=== PATIENT | female | born 1980 | race Caucasian/White ===

== ENCOUNTER 2017-01-10 05:37 | Outpatient (CLI) | payer OTHER ==
[~2017-01-10] VITALS: Ht 167.6 cm; Wt 85.7 kg
[~2017-01-10 05:37] MED LIST: OXYC-202 PO
== END 2017-01-10 12:57 ==
LOC: PREOP 05:37
PROVIDERS: ATTEND Obstetrics & Gynecology
DX: Z01.818 Encounter for other preprocedural examination (principal); O02.0 Blighted ovum and nonhydatidiform mole; D64.9 Anemia, unspecified

== ENCOUNTER 2017-01-11 12:25 | Day surgery (SDC) | payer OTHER ==
[~2017-01-11] VITALS: Ht 167.6 cm; Wt 85.7 kg
[2017-01-11 12:28] VITALS: BP 136/74
[2017-01-11] MEDS ORDERED: LACTATED RINGERS 1,000 ML IV PRN (12:38)
[2017-01-11] MEDS ORDERED: metroNIDAZOLE 500 MG/100 ML IVPB (PRE-MIX) IV ONE (12:45)
[2017-01-11 12:48] LABS: BASOPHILS % (AUTO) 1 % (0-10); EOSINOPHILS # (AUTO) 0.1 10^3/uL (0.0-0.3); EOSINOPHILS % (AUTO) 2 % (0-10); LYMPHOCYTES # (AUTO) 3.4 X 10^3 (1.0-4.0); LYMPHOCYTES % (AUTO) 39 % (12-44); MEAN CORPUSCULAR HEMOGLOBIN 33 PG (25-34); MEAN CORPUSCULAR HGB CONC 34 G/DL (32-36); MEAN CORPUSCULAR VOLUME 97 FL (80-99); MEAN PLATELET VOLUME 9.5 FL (7.4-10.4); MONOCYTES # (AUTO) 0.7 X 10^3 (0.0-1.0); MONOCYTES % (AUTO) 8 % (0-12); NEUTROPHILS # (AUTO) 4.5 X 10^3 (1.8-7.8); NEUTROPHILS % (AUTO) 52 % (42-75); PLATELET COUNT 277 10^3/uL (130-400); RED BLOOD COUNT 3.89 10^6/uL (4.35-5.85); RED CELL DISTRIBUTION WIDTH 13.1 % (10.0-14.5); WHITE BLOOD COUNT 8.7 10^3/uL (4.3-11.0)
[2017-01-11] MEDS ORDERED: DEXAMETHASONE PF 10 MG/ML (DECADRON) VIAL ONE (13:00)
[2017-01-11] MEDS ORDERED: proPOfol 200 MG/20 ML (DIPRIVAN) VIAL IV ONE (13:00)
[2017-01-11] MEDS ORDERED: MIDAZOLAM 2 MG/2 ML (VERSED) VIAL ONE (13:00)
[2017-01-11] MEDS ORDERED: fentaNYL INJECTION 100 MCG/2 ML AMP ONE (13:00)
[2017-01-11] MEDS ORDERED: LIDOCAINE PF 2% 5 ML (XYLOCAINE) VIAL ONE (13:00)
[2017-01-11] MEDS ORDERED: KETOROLAC 30 MG/ML VIAL ONE ×2 (13:00→13:31)
[2017-01-11] MEDS ORDERED: LACTATED RINGERS 1,000 ML IV ONE (13:00)
--- NOTE | 2017-01-11 13:09 | Progress Note-Pre Operative ---
Pre-Operative Progress Note H&P Reviewed The H&P was reviewed, patient examined and no changes noted. Date H&P Reviewed: January 11, 2017 Time H&P Reviewed: 13:09 Pre-Operative Diagnosis: blighted ovum/missed AB/abnormal cervical cells KEVIN LIN MD January 11, 2017 1:09 pm
[2017-01-11] MEDS ORDERED: D5 LR IV SOLUTION 1,000 ML IV SCH (13:10)
--- NOTE | 2017-01-11 13:10 | Progress Note-Post Operative ---
Post-Operative Progess Note Surgeon (s)/Microsoft Dynamics Ax Developer (s) Surgeon KEVIN LIN MD [employer] Ax Developer: none Pre-Operative Diagnosis blighted ovum/missed AB/abnormal cervical cells Post-Operative Diagnosis same with pathology pending Procedure & Operative Findings Date of Procedure 01/11/17 Procedure Performed/Findings same as postoperative diagnosis with pathology pending Anesthesia Type Gen. Estimated Blood Loss Estimated blood loss (mL): minimal Specimens/Packing Specimens Removed uterine contents and endocervical curettage Packing: none KEVIN LIN MD January 11, 2017 1:10 pm
--- NOTE | 2017-01-11 13:13 | Discharge Instructions ---
Discharge Instructions Discharge Medications New, Converted or Re-Newed RX: Other Patient Instructions Patient Instructions: as directed Return to The Hospital For: as directed Activity & Diet Discharge Diet: No Restrictions Activity as Tolerated: No Orders-Post D/C & Referrals Follow Up Appt: Call to make follow up appt. for patient in 2 weeks. Activity: when fully awake activity as tolerated. Diet: As tolerated-Clear Liquids only if nauseated. May shower or tub bathe as desired. No driving for 24 hours, no alcoholic beverages for 24 hours, and nothing per vagina (no tampons, douching, or intercourse) for 2 weeks. Patient to return to the clinic as soon as possible for: Temperature greater than 101F, Severe Pain, Foul discharge from incision or vagina, Excessive Bleeding (more than a period). May take home pain medications when necessary as prescribed KEVIN LIN MD January 11, 2017 1:13 pm
[2017-01-11] MEDS ORDERED: ONDANSETRON 4 MG/2 ML (SDV) Z0FRAN IVP PRN ×2 (13:15→14:00)
[2017-01-11] MEDS ORDERED: KETOROLAC 30 MG/ML VIAL IVP ONE (13:15)
[2017-01-11] MEDS ORDERED: MEPERIDINE (DEMEROL) INJ 100 MG/ML IM ONE (13:15)
[2017-01-11] MEDS ORDERED: oxyCODONE/APAP 10/325MG (PERCOCET 10) TABLET PO PRN (13:15)
[2017-01-11] MEDS ORDERED: morphine INJ 10 MG/ML 1ML (SYR OR VIAL) ONE (13:22)
[2017-01-11] MEDS ORDERED: SEVOFLURANE (ULTANE) 15 ML INHAL SOLN ONE (13:31)
[2017-01-11] MEDS ORDERED: morphine INJ 10 MG/ML 1ML (SYR OR VIAL) IVP PRN (14:00)
[2017-01-11] MEDS ORDERED: fentaNYL INJECTION 100 MCG/2 ML AMP IVP PRN (14:00)
[2017-01-11 14:40] VITALS: BP 123/60
[2017-01-11 15:10] VITALS: BP 110/73
[2017-01-11 15:40] VITALS: BP 118/74
[2017-01-11 15:48] VITALS: BP 118/74
--- NOTE | 2017-01-11 23:02 | OPERATIVE REPORT ---
DATE OF SERVICE: 01/11/2017 PREOPERATIVE DIAGNOSES: Missed /blighted ovum and abnormal intracervical cells. POSTOPERATIVE DIAGNOSES: Missed /blighted ovum and abnormal intracervical cells. OPERATIVE PROCEDURE: Intracervical curettage and D and C for blighted ovum. OPERATIVE DESCRIPTION: With the patient in the supine position under satisfactory general anesthesia, she was repositioned in dorsal lithotomy position in the [facility] and prepped and draped in the usual fashion for vaginal surgery. The urinary bladder was emptied with a straight catheter. A weighted speculum was placed in the posterior fornix of the vagina; the cervix was exposed and grasped anteriorly with a single-tooth tenaculum. The end of the cervix was curettaged with a Kevorkian and curette and then a Pap smear brush was used to retrieve additional cells and tissues released with the ECC. That was put in formalin and sent to pathology labeled as endocervical curettage. The cervix was now serially dilated with Toni dilators to a #20 Toni and then a #9 Hegar dilator was the final step in dilation. The #9 curve sucking curette was then introduced, and the uterine cavity curettaged in all 4 quadrants with removal of a moderate amount of trophoblastic and decidual appearing tissue, blood, clot, amniotic fluid and debris. The endometrial cavity was then sharply curettaged in all 4 quadrants to good uterine cri. The suction curette was reintroduced. All blood, clot and debris evacuated from the uterus. The procedure at this point was complete. The curettes were removed as was the tenaculum from the cervix. There was some bleeding from one of the puncture sites. This was touched with silver nitrate to effect hemostasis. The sponge and needle count was correct, hemostasis assured. No bleeding of any note from the cervical os or from the puncture sites. The procedure was complete and terminated. The patient was uneventfully awakened from general anesthesia and transferred to recovery room in stable condition with plans to discharge home PAR. Job ID: [id number] DocumentID: [id number] Dictated Date: 01/11/2017 13:38:25 Biomass Power Plant Manager Date: 01/11/2017 23:01:17 Dictated By: KEVIN LIN MD [facility]
== END 2017-01-11 15:48 | disposition home or self-care (01) ==
LOC: SDC 12:25
PROVIDERS: ATTEND Obstetrics & Gynecology
DX: O02.0 Blighted ovum and nonhydatidiform mole (principal)
CPT/HCPCS: 36415; 85025; 87081

== ENCOUNTER → 2018-02-21 | Outpatient (CLI) | payer OTHER ==
--- NOTE | 2018-02-21 14:10 | Diagnostic Imaging Report ---
INDICATION: Routine screening. COMPARISON: No prior mammograms are available for comparison. This is a baseline study. TECHNIQUE: 2D and 3D bilateral screening mammography was performed with CAD. FINDINGS: Scattered fibroglandular densities are identified bilaterally. No mass is identified. There are benign calcifications on the right. No malignant appearing microcalcifications are seen. The axillae are unremarkable. IMPRESSION: No mammographic features suspicious for malignancy are identified. ACR BI-RADS Category 2: Benign findings. Result letter will be mailed to the patient. Note: At least 10% of breast cancer is not imaged by mammography. Dictated by: Dictated on workstation # [id number]
== END ==
LOC: RAD 09:58
PROVIDERS: ATTEND Obstetrics & Gynecology
DX: Z12.31 Encounter for screening mammogram for malignant neoplasm of breast (principal)
CPT/HCPCS: 77067

== ENCOUNTER → 2018-05-23 | Outpatient (CLI) | payer OTHER ==
[~2018-05-23] MED LIST changes: -OXYC-202 PO; +OXYC1TAB12 PO
[2018-05-23 18:25] LABS: BASOPHILS % (AUTO) 0 % (0-10); EOSINOPHILS # (AUTO) 0.1 10^3/uL (0.0-0.3); EOSINOPHILS % (AUTO) 1 % (0-10); HEMATOCRIT 36 % (35-52); HEMOGLOBIN 12.7 G/DL (11.5-16.0); LYMPHOCYTES # (AUTO) 3.5 X 10^3 (1.0-4.0); LYMPHOCYTES % (AUTO) 38 % (12-44); MEAN CORPUSCULAR HEMOGLOBIN 34 PG (25-34); MEAN CORPUSCULAR HGB CONC 35 G/DL (32-36); MEAN CORPUSCULAR VOLUME 96 FL (80-99); MEAN PLATELET VOLUME 9.6 FL (7.4-10.4); MONOCYTES # (AUTO) 0.6 X 10^3 (0.0-1.0); MONOCYTES % (AUTO) 7 % (0-12); NEUTROPHILS % (AUTO) 54 % (42-75); PLATELET COUNT 307 10^3/uL (130-400); RED BLOOD COUNT 3.78 10^6/uL (4.35-5.85); RED CELL DISTRIBUTION WIDTH 12.2 % (10.0-14.5); WHITE BLOOD COUNT 9.3 10^3/uL (4.3-11.0)
[2018-05-23 18:47] LABS: ALANINE AMINOTRANSFERASE 22 U/L (0-55); ALBUMIN 4.5 GM/DL (3.2-4.5); ALKALINE PHOSPHATASE 55 U/L (40-136); BILIRUBIN,TOTAL 0.5 MG/DL (0.1-1.0); BUN/CREATININE RATIO 15; CALCIUM 9.4 MG/DL (8.5-10.1); CARBON DIOXIDE 21 MMOL/L (21-32); CHLORIDE 106 MMOL/L (98-107); CREATININE SERUM 0.65 MG/DL (0.60-1.30); GFR ESTIMATED > 60; GLUCOSE 86 MG/DL (70-105); POTASSIUM 3.7 MMOL/L (3.6-5.0); SODIUM 138 MMOL/L (135-145); TOTAL PROTEIN 7.4 GM/DL (6.4-8.2)
--- NOTE | 2018-05-23 18:53 | Diagnostic Imaging Report ---
INDICATION: Low back pain. COMPARISON: None available. TECHNIQUE: Three views of lumbar spine. FINDINGS: Normal alignment of the lumbar spine. Vertebral bodies are normal in stature without fracture or ankylosis. Intervertebral disc space heights are well preserved. SI joints are normal. No appreciable facet osteoarthritis. IMPRESSION: Normal lumbar spine radiographs. Dictated by: Dictated on workstation # [id number]
== END ==
LOC: RAD 17:45
PROVIDERS: ATTEND Nurse Practitioner Family
DX: M54.5 Low back pain (principal); R10.31 Right lower quadrant pain
CPT/HCPCS: 36415; 72100; 80053; 85025

== ENCOUNTER → 2018-05-25 | Outpatient (CLI) | payer OTHER ==
[~2018-05-25] MED LIST changes: +IOHEXOL 350 MG/ML 100 ML (OMNIPAQUE 350) VIAL IV ONE; +NS 250 ML (IVPB) BAG IV ONE
--- NOTE | 2018-05-25 17:12 | Diagnostic Imaging Report ---
PROCEDURE: CT abdomen and pelvis with and without contrast. TECHNIQUE: Precontrast acquisitions were acquired through the abdomen and pelvis. Multiple contiguous axial images were obtained through the abdomen and pelvis after the administration of intravenous contrast. INDICATION: Persistent back pain. Lower abdominal pain. FINDINGS: The liver, gallbladder, and bile ducts are normal. The spleen, pancreas, and adrenals are normal. The kidneys, ureters, and bladder are normal. There is no pelvic mass. There is no acute bowel abnormality. There may be scattered diverticula in the colon with no evidence of diverticulitis. There is no free intraperitoneal air or fluid. There is a 13 mm localized sclerotic lesion in the left ilium, which is most likely a bone island. No acute bony abnormality is seen. IMPRESSION: No acute abnormality is seen. Dictated by: Dictated on workstation # [id number]
== END ==
LOC: RAD 16:22
DX: R10.31 Right lower quadrant pain (principal); R10.32 Left lower quadrant pain; M54.9 Dorsalgia, unspecified
CPT/HCPCS: 74178

== ENCOUNTER 2019-12-30 09:38 | Outpatient (RCR) | payer OTHER ==
[~2019-12-30] VITALS: Ht 165.1 cm; Wt 89.1 kg
[~2019-12-30 09:38] MED LIST changes: -IOHEXOL 350 MG/ML 100 ML (OMNIPAQUE 350) VIAL IV ONE; -NS 250 ML (IVPB) BAG IV ONE
[2019-12-30] MEDS ORDERED: bcp PO (11:16)
== END 2019-12-30 15:11 | disposition home or self-care (01) ==
LOC: PREOP 09:38
PROVIDERS: ATTEND Internal Medicine
DX: Z01.818 Encounter for other preprocedural examination (principal); Z01.812 Encounter for preprocedural laboratory examination
CPT/HCPCS: 87635

== ENCOUNTER 2020-01-03 07:12 | Day surgery (SDC) | payer OTHER ==
--- NOTE | 2019-12-26 16:18 | HISTORY AND PHYSICAL ---
DATE OF SERVICE: COLONOSCOPY HISTORY AND PHYSICAL HISTORY OF PRESENT ILLNESS: The patient is a 39-year-old white female referred for colonoscopy by Erica NAILS and Dr. Queen for change in bowel habit with rectal bleeding and associated mucus. She reports ever since she was diagnosed with influenza A in early September. She noted bowel habit change. She was treated with Tamiflu and reports that she has not received any oral or IV antibiotics this year. She currently is only on control pills and does report that she has had some breakthrough bleeding unusual for her which started about her 12th day of active medication in the pack. She has had a little bit of cramping with vaginal bleeding, but reports no pain with rectal bleeding. She had had no bloating, no change in appetite or change in weight. She has denied night sweats, chills, fever or arthralgia. 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 PAST MEDICAL HISTORY: She reports significant for polyps. She underwent colonoscopy at the age of 21 for rectal bleeding, which she was noted to have polyps. She had repeat colonoscopy in 2010 and thought she may have had a polyp or two removed at that time. I did review the electronic medical record and it was performed by Dr. Greenwood and no polyps were removed. It was reportedly a normal examination. She has a history of endometriosis and has had some left ureteral implants removed by Dr. Arroyo as well as other areas. She was not aware of any colonic involvement. PAST SURGICAL HISTORY: She has had several D and Cs, has had ovarian cyst removed in the past. At the time of that procedure, an appendectomy was performed and she has had a tonsillectomy and adenoidectomy as a child and wisdom teeth extraction. FAMILY HISTORY: Father is living with prostate cancer and type 2 diabetes mellitus as well as hypertension at the age of 70. Mother is living at the age of 75 with diabetes, rheumatoid arthritis and significant obesity. 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 REVIEW OF SYSTEMS: CONSTITUTIONAL: She denies night sweats, chills or fever. GASTROINTESTINAL: As noted in the HPI. In addition to that, she has noticed some decrease in stool caliber with her change in bowel habits and mucus production. She only goes once every day or two, so denies associated diarrhea. PULMONARY: She denies any problems with cough, wheezing or chest pain. CARDIOVASCULAR: She denies chest pain, orthopnea, PND, pedal edema or dyspnea on exertion. PHYSICAL EXAMINATION: GENERAL: Reveals a white female, who appears to be in no acute distress. VITAL SIGNS: Weight 196.8 pounds, blood pressure 130/92, heart rate 70 and regular. HEENT: Unremarkable. No evidence for pallor. She has a Mallampati 2 oropharyngeal configuration. CHEST: Clear to auscultation. CARDIOVASCULAR: Reveals a regular rate and rhythm without murmur, S3 or S4. ABDOMEN: Soft, supple without mass, organomegaly or tenderness. Bowel sounds are positive. No bruits are noted. EXTREMITIES: Reveal no cyanosis, clubbing or edema. ASSESSMENT AND PLAN: For evaluation of bowel habit change, stool caliber change and rectal bleeding, the patient was set up for diagnostic colonoscopy on 01/03/2020. Prep instructions with Suprep kit were given and questions were answered. The patient reports that she had a much better experience with colonoscopy done under Diprivan as opposed to Versed. So, we will plan on anesthesia consultation with utilization of Diprivan for the procedure. I thank you for the referral of this pleasant lady. Job ID: [id number] DocumentID: [id number] Dictated Date: 12/25/2019 16:48:10 Perpetual Inventory Clerk Date: 12/25/2019 17:11:55 Dictated By: ISRAEL JIMÉNEZ MD [facility]
[~2020-01-03 07:12] MED LIST changes: +LACTATED RINGERS 1,000 ML IV ONE; +bcp PO
[2020-01-03] MEDS ORDERED: LACTATED RINGERS 1,000 ML IV STA (07:43)
[2020-01-03] MEDS ORDERED: LIDOCAINE JELLY 2% 6 ML SYRINGE MM PRN (07:45)
[2020-01-03 07:46] VITALS: BP 134/80
--- NOTE | 2020-01-03 08:00 | Pre-Op Note & Conscious Sedat ---
Pre-Operative Progress Note H&P Reviewed The H&P was reviewed, patient examined and no changes noted. Date H&P Reviewed: January 03, 2020 Time H&P Reviewed: 07:45 Conscious Sedation Pre-Proced ASA Score 2 For ASA 3 and 4: Consider anesthesia and medical clearance. Also, for patients with a history of failed moderate sedation consider anesthesia. Airway Lungs Heart ASA score ASA 1: a normal healthy patient ASA 2: a patient with a mild systemic disease (mid diabetes, controlled hypertension, obesity ASA 3: a patient with a severe systemic disease that limits activity (angina, COPD, prior Myocardial infarction) ASA 4: a patient with an incapacitating disease that is a constant threat to life (CHF, renal failure) ASA 5: a moribund patient not expected to survive 24 hrs. (ruptured aneurysm) ASA 6: a declared brain- patient whose organs are being harvested. For emergent operations, add the letter E after the classification Mallampati Classification Grade 2 Sedation Plan Analgesia, Amnesia, Plan communicated to team members, Discussed options with patient/fam, Discussed risks with patient/fam The patient is an appropriate candidate to undergo the planned procedure, sedation, and anesthesia. The patient immediately re-assessed prior to indication. ISRAEL JIMÉNEZ MD January 03, 2020 08:00
[2020-01-03 08:25] VITALS: BP 98/53
[2020-01-03 08:30] VITALS: BP 99/58
[2020-01-03 08:35] VITALS: BP 99/58
[2020-01-03 09:10] VITALS: BP 130/75
[2020-01-03] MEDS ORDERED: MESA10005 RC (09:14)
[2020-01-03 10:02] VITALS: BP 130/75
--- NOTE | 2020-01-03 10:08 | Anesthesia-General Post-Op ---
MAC Patient Condition Mental Status/LOC: Same as Preop Cardiovascular: Satisfactory Nausea/Vomiting: Absent Respiratory: Satisfactory Pain: Controlled Complications: Absent Post Op Complications Complications None Follow Up Care/Instructions Patient Instructions None needed. Anesthesiology Discharge Order Discharge Order Patient is doing well, no complaints, stable vital signs, no apparent adverse anesthesia problems. No complications reported per nursing. ERIC FONTANA CRNA January 03, 2020 10:08
--- NOTE | 2020-01-03 17:08 | OPERATIVE REPORT ---
DATE OF SERVICE: COLONOSCOPY SUMMARY INDICATION FOR THE PROCEDURE: Rectal bleeding with change in bowel habit. DESCRIPTION OF PROCEDURE: The patient was placed in the left lateral decubitus position. Prior to undergoing colonoscopy, digital rectal evaluation was performed. Anal sphincter tone was normal and the perianal reflexes intact. The digital rectal evaluation revealed no abnormalities involving the anal canal or distal rectal vault. The colonoscope was then inserted into the rectum and under direct visualization advanced to cecum. The cecum was identified by identification of the ileocecal valve and cecal strap. Photographic documentation was obtained. Careful inspection was made as the colonoscope was withdrawn. The patient tolerated the procedure well. The quality of prep was good. FINDINGS: Diffuse inflammatory change with loss of usual vascular markings and adherent mucus with shallow ulceration was noted involving the entirety of the rectum with sharp demarcation line, the level of the rectosigmoid junction. Findings are compatible with distal ulcerative colitis. Biopsies were obtained and submitted for histopathology. No evidence for nodularity or pseudo polyp formation was noted. Present in the distal sigmoid colon uninvolved with surrounding inflammation, to gross inspection was a 3 x 5 mm sessile hyperplastic-appearing polyp. It was photographed and biopsied and ablated and submitted for histopathology. The remainder of the sigmoid colon, descending colon, splenic flexure, transverse colon, hepatic flexure, ascending colon and cecum were unremarkable. No evidence for diverticular disease was noted. ASSESSMENT: Findings are compatible with ulcerative colitis involving the rectum with a demarcation line at the rectosigmoid junction as noted above. One diminutive hyperplastic appearing polyp was removed from the distal sigmoid colon. After discussion with the patient and Dr. Queen, mesalamine suppositories at bedtime will be initiated 1 gram. Expectations were discussed with the patient. She had been taking a fair amount of ibuprofen over the past several weeks for elbow pain. Physical examination findings are compatible with right-sided lateral epicondylitis. She was advised to abstain from nonsteroidal medications as it may exacerbate underlying ulcerative colitis, use a brace, ice and p.r.n. Tylenol, . I did take the liberty, after discussion with Dr. Queen, of having her return once to check her response to mesalamine in 4 weeks. I thank you for the referral of this pleasant lady. Job ID: [id number] DocumentID: [id number] Dictated Date: 01/03/2020 11:14:59 Power Builder Developer Date: 01/03/2020 17:08:22 Dictated By: ISRAEL JIMÉNEZ MD MTDD
== END 2020-01-03 09:20 | disposition home or self-care (01) ==
LOC: ENDO 07:12
PROVIDERS: ATTEND Internal Medicine
DX: K63.5 Polyp of colon (principal); K62.89 Other specified diseases of anus and rectum; Z87.891 Personal history of nicotine dependence; Z88.0 Allergy status to penicillin; Z88.1 Allergy status to other antibiotic agents
CPT/HCPCS: 84703; 88305

== ENCOUNTER → 2020-02-25 | Outpatient (CLI) | payer OTHER ==
[~2020-02-25] MED LIST changes: -LACTATED RINGERS 1,000 ML IV ONE; +MESA10005 RC
--- NOTE | 2020-02-25 16:09 | Diagnostic Imaging Report ---
INDICATION: Routine screening. Comparison is made with prior mammogram from 02/21/2018. 2-D and 3-D bilateral screening mammography was performed with CAD. Scattered fibroglandular densities are identified bilaterally. Benign calcifications right breast appears stable. No mass or malignant appearing microcalcifications are seen. Axillae are unremarkable. IMPRESSION: BI-RADS Category 2 No mammographic features suspicious for malignancy are identified. ACR BI-RADS Category 2: Benign findings. Result letter will be mailed to the patient. Note: At least 10% of breast cancer is not imaged by mammography. Dictated by: Dictated on workstation # [id number]
== END ==
LOC: RAD 10:06
PROVIDERS: ATTEND Obstetrics & Gynecology
DX: Z12.31 Encounter for screening mammogram for malignant neoplasm of breast (principal)
CPT/HCPCS: 77063; 77067

== ENCOUNTER 2020-03-10 05:31 | Outpatient (RCR) | payer OTHER ==
[~2020-03-10] VITALS: Ht 165 cm; Wt 86.0 kg
--- NOTE | 2020-03-10 14:46 | Progress Note-Pre Operative ---
Pre-Operative Progress Note H&P Reviewed The H&P was reviewed, patient examined and no changes noted. Date Seen by Provider: Mar 13, 2020 Date H&P Reviewed: Mar 13, 2020 Pre-Operative Diagnosis: dub/cpp KEVIN LIN MD Mar 10, 2020 14:46
--- NOTE | 2020-03-10 14:47 | Progress Note-Post Operative ---
Post-Operative Progess Note Surgeon (s)/Negative Spotter (s) Surgeon KEVIN LIN MD Pre-Operative Diagnosis dub/cpp Post-Operative Diagnosis Same Procedure & Operative Findings Date of Procedure 03/10/20 Procedure Performed/Findings T LH with BS Anesthesia Type GETA Specimens/Packing Specimens Removed Uterus and tubes KEVIN LIN MD Mar 10, 2020 14:47
== END 2020-03-10 14:25 | disposition home or self-care (01) ==
LOC: PREOP 05:31
PROVIDERS: ATTEND Obstetrics & Gynecology
DX: Z01.812 Encounter for preprocedural laboratory examination (principal); Z20.828 Contact with and (suspected) exposure to other viral communicable diseases; N93.8 Other specified abnormal uterine and vaginal bleeding; N80.0 Endometriosis of uterus; R19.09 Other intra-abdominal and pelvic swelling, mass and lump; D64.9 Anemia, unspecified
CPT/HCPCS: 87635

== ENCOUNTER 2020-03-13 11:41 | Day surgery (SDC) | payer OTHER ==
[~2020-03-13] VITALS: Ht 165 cm; Wt 86.0 kg
[2020-03-13] VITALS (8 sets, daily range): BP systolic 112–133; BP diastolic 66–84
[2020-03-13] MEDS ORDERED: CLINDAMYCIN 900 MG/50 ML IVPB 50 ML IV ONE ×2 (12:31→13:00)
[2020-03-13 12:40] LABS: BASOPHILS % (AUTO) 0 % (0-10); EOSINOPHILS # (AUTO) 0.1 10^3/uL (0.0-0.3); EOSINOPHILS % (AUTO) 1 % (0-10); HEMATOCRIT 38 % (35-52); HEMOGLOBIN 12.5 G/DL (11.5-16.0); LYMPHOCYTES # (AUTO) 2.6 X 10^3 (1.0-4.0); LYMPHOCYTES % (AUTO) 31 % (12-44); MEAN CORPUSCULAR HEMOGLOBIN 32 PG (25-34); MEAN CORPUSCULAR HGB CONC 33 G/DL (32-36); MEAN CORPUSCULAR VOLUME 95 FL (80-99); MEAN PLATELET VOLUME 10.1 FL (7.4-10.4); MONOCYTES # (AUTO) 0.7 X 10^3 (0.0-1.0); MONOCYTES % (AUTO) 9 % (0-12); NEUTROPHILS # (AUTO) 4.8 X 10^3 (1.8-7.8); NEUTROPHILS % (AUTO) 58 % (42-75); PLATELET COUNT 316 10^3/uL (130-400); WHITE BLOOD COUNT 8.2 10^3/uL (4.3-11.0)
[2020-03-13] MEDS: LACTATED RINGERS 1,000 ML IV PRN ×3 (12:55→17:48)
[2020-03-13] MEDS ORDERED: proPOfol 200 MG/20 ML (DIPRIVAN) VIAL IV ONE (14:10)
[2020-03-13] MEDS ORDERED: fentaNYL INJECTION 100 MCG/2 ML AMP ONE (14:10)
[2020-03-13] MEDS ORDERED: LIDOCAINE PF 2% 5 ML (XYLOCAINE) VIAL ONE (14:10)
[2020-03-13] MEDS ORDERED: MIDAZOLAM 2 MG/2 ML (VERSED) VIAL ONE (14:10)
[2020-03-13] MEDS ORDERED: ROCURONIUM 10 MG/ML 5 ML SYRINGE IV ONE (14:11)
[2020-03-13] MEDS ORDERED: SEVOFLURANE (ULTANE) 15 ML INHAL SOLN ONE ×4 (14:11→17:40)
[2020-03-13] MEDS ORDERED: GLYCOPYRROLATE 0.2 MG/ML (ROBINUL) 2 ML VIAL ONE (14:11)
[2020-03-13] MEDS ORDERED: ONDANSETRON 4 MG/2 ML (SDV) Z0FRAN ONE ×2 (14:11→16:27)
[2020-03-13] MEDS ORDERED: NEOSTIGMINE 3 MG/3 ML VIAL ONE (14:11)
[2020-03-13] MEDS ORDERED: D5 LR IV SOLUTION 1,000 ML IV SCH (15:37)
--- NOTE | 2020-03-13 15:41 | Progress Note-Pre Operative ---
Pre-Operative Progress Note H&P Reviewed The H&P was reviewed, patient examined and no changes noted. Date Seen by Provider: Mar 13, 2020 Time Seen by Provider: 15:40 Date H&P Reviewed: Mar 13, 2020 Time H&P Reviewed: 15:40 Pre-Operative Diagnosis: DUB/CPP/ENDOMETRIOSIS/MASS IN UTERUS/RIGHT OVARY MASS KEVIN LIN MD Mar 13, 2020 15:41
--- NOTE | 2020-03-13 15:42 | Progress Note-Post Operative ---
Post-Operative Progess Note Surgeon (s)/Skiing Instructor (s) Surgeon KEVIN LIN MD Skiing Instructor: Pamella Montelongo Pre-Operative Diagnosis DUB/CPP/ENDOMETRIOSIS/MASS IN UTERUS/RIGHT OVARY MASS Post-Operative Diagnosis SAME Procedure & Operative Findings Date of Procedure 03/13/20 Procedure Performed/Findings TLH/BS/adhesio lysis/right oophorectomy Anesthesia Type GETA Estimated Blood Loss Estimated blood loss (mL): Minimal Specimens/Packing Specimens Removed TLH/BS/right ovary KEVIN LIN MD Mar 13, 2020 15:42
[2020-03-13] MEDS ORDERED: OXYC1TAB87 PO (15:43)
[2020-03-13] MEDS ORDERED: DCS100C PO (15:43)
[2020-03-13] MEDS ORDERED: IBUP-1780 PO (15:43)
[2020-03-13] MEDS ORDERED: PROMETHAZINE INJ 25 MG/ML (PHENERGAN) AMP IM PRN (15:45)
[2020-03-13] MEDS ORDERED: ONDANSETRON 4 MG/2 ML (SDV) Z0FRAN IVP PRN ×2 (15:45→17:45)
[2020-03-13] MEDS ORDERED: KETOROLAC 30 MG/ML VIAL IVP SCH (15:45)
[2020-03-13] MEDS ORDERED: oxyCODONE/APAP 5/325MG (PERCOCET 5) TABLET PO PRN (15:45)
[2020-03-13] MEDS ORDERED: BENZOCAINE/MENTHOL (DERMOPLAST) 60 ML CAN TP PRN (15:45)
[2020-03-13] MEDS ORDERED: MEPERIDINE (DEMEROL) INJ 100 MG/ML IM PRN (15:45)
--- NOTE | 2020-03-13 15:45 | Discharge Inst-Surgical ---
Discharge Inst-Surgical Depart Medication/Instructions New, Converted or Re-Newed RX: RX on Chart Consults/Follow Up Patient Instructions: DIRECTED Orders & Referrals Follow Up Appt: RTC ON MONDAY MARCH 16, 2020 AT 0930 FOR STAPLE REMOVAL Call to make follow up appt. for patient in 4 weeks. Activity: Rest for 24 hours, than as tolerated. Wound Care: May remove Band-Aid tomorrow. Replace as desired. Keep incisions clean and dry. Wash daily with soap and water. Please call in RX to patient pharmacy. Diet: As tolerated shower or tub bathe as desired. No driving for 24 hours, no alcoholic beverages for 24 hours, and nothing per vagina (no tampons, douching, or intercourse) for 8 weeks. Patient to return to the clinic as soon as possible for: Temperature greater than 101F, Severe Pain, Foul discharge from incision or vagina, Excessive Bleeding (more than a period). Activity Activity as Tolerated: No Diet Discharge Diet: No Restrictions KEVIN LIN MD Mar 13, 2020 15:45
[2020-03-13] MEDS ORDERED: BUP/EPI 0.5% 1:200,000 (MARCAINE) 10ML VIAL IJ ONE (15:49)
[2020-03-13] MEDS ORDERED: morphine INJ 10 MG/ML 1ML (SYR OR VIAL) ONE (16:27)
[2020-03-13] MEDS ORDERED: HYDROmorphone 2 MG/ML VIAL (DILAUDID) ONE (17:07)
[2020-03-13] MEDS ORDERED: INDIGO CARMINE 8 MG/ML 5 ML AMP ONE (17:16)
[2020-03-13] MEDS ORDERED: FUROSEMIDE 40 MG/4 ML INJ (LASIX) ONE (17:16)
[2020-03-13] MEDS ORDERED: KETOROLAC 30 MG/ML VIAL ONE (17:40)
[2020-03-13] MEDS ORDERED: morphine INJ 10 MG/ML 1ML (SYR OR VIAL) IVP ONE (17:45)
--- NOTE | 2020-03-13 18:20 | NUR ---
Pt to room via bed accompanied by PACU staff. Report rec'd bedside from Venu Martinez RN. VS taken, assessment completed. Middle op site has scant bright red drainage. [place] draining clear blue urine to dependent drainage. Pt c/o lower abd. pressure. IV fluids to pump. Fresh ice water provided. SCD's on and activated. S.O. at bedside.
[2020-03-13] MEDS: KETOROLAC 30 MG/ML VIAL IVP SCH (23:56)
[2020-03-14 02:05] VITALS: BP 127/75
--- NOTE | 2020-03-14 02:40 | OPERATIVE REPORT ---
DATE OF SERVICE: 03/13/2020 PREOPERATIVE DIAGNOSES: Chronic pelvic pain, dysfunctional uterine bleeding, history of endometriosis and complex right ovarian cyst. POSTOPERATIVE DIAGNOSES: Chronic pelvic pain, dysfunctional uterine bleeding, history of endometriosis and complex right ovarian cyst with pathology pending. OPERATIVE PROCEDURE: Total laparoscopic hysterectomy with bilateral salpingectomy and right oophorectomy as well as adhesiolysis, cystoscopy. OPERATIVE DESCRIPTION: With the patient in the supine position under satisfactory general anesthesia, she was repositioned in dorsal lithotomy position in the [facility] and prepped and draped in the usual fashion for abdominal and vaginal surgery. Weighted speculum placed in posterior fornix of vagina, cervix exposed and grasped anteriorly with single tooth tenaculum. Uterus was sounded to 14 cm with uterine sound. Cervix was then serially dilated with Toni dilators to accommodate Mona II manipulator, which was placed using a 6 mm x 8 cm uterine probe and a 30 mm colpotomy ring. Sutures of #1 Vicryl placed at 3 and 9 o'clock position of the cervix to affix the uterus to the manipulator. The [place] catheter was placed in the urinary bladder and the patient was brought into low dorsal lithotomy position. A 12 mm incision was made 9 cm superior to the umbilicus. Veress needle was placed through that incision into the abdominal cavity. Correct placement was confirmed with a water drop test and the abdomen insufflated with 2.4 liters of carbon dioxide. The Veress needle was removed and a 12 mm Optiview laparoscopic port placed. Abdominal wall was transilluminated and ports of 8 mm were placed through incisions of those sizes 9 cm lateral to the umbilicus 4 cm above the level of umbilicus. The patient was placed in Trendelenburg allowing the bowel spill out of the pelvis. The operative column was advanced on the patient and docked, the operative instruments were placed in the right and left lateral ports and I retired to the da Jorden console. At the console using a vessel sealer on the right and a bipolar fenestrated grasper on the left, the pelvis was first examined. The right ovary was densely adherent to the right pelvic sidewall, which would have certainly created appearance of a complex appearing mass with the massive adhesions and the distortion of the pelvic sidewall. The right fallopian tube was adherent over the ovary to the sidewall as well. The left ovary was free and appeared normal. The left fallopian tube was relatively normal. The uterus was quite large, bulky and boggy and mottled in appearance consistent with extensive adenomyosis and possibly some leiomyoma as well. Laparoscope was rotated. The appendix was surgically absent. That area appeared normal. There were adhesions in the pelvis of the anterior surface of the sigmoid, rectosigmoid to the posterior lower uterine segment. These were lysed sharply and bluntly allowing the uterus to be manipulated more easily. With those adhesions free, the right ovary was carefully dissected free from the right pelvic sidewall, the adhesions extended well down over the ureter. The ureter could be seen peristalsing behind the adhesions. This area would certainly have been involved with endometriosis, the retroperitoneal space on the right was developed allowing for the ureter being retracted medially and in the process of taking out the ovary to take out the involved peritoneum from the right pelvic sidewall. The IP ligament on the right was clamped, cauterized and divided using the vessel sealer. Dissection was carried down to the area previously mentioned, the ureter retracted medially. The abnormal tissue involved and the peritoneum was removed with the peritoneum on the right pelvic sidewall. Right round ligament, broad ligament were clamped, cauterized and divided. Dissection was carried down to the right cardinal ligament, allowing for removal of the tube and ovary on the right with the uterus eventually. At one point a large vessel was entered. The camera was partly occluded, but the bleeding vessel could be clamped and cauterized and then the camera cleaned and the dissection continued. With the right side free the left fallopian tube was dissected free from the left ovary allowing for conservation of the left ovary. The left mesosalpinx was clamped, cauterized and divided with the vessel sealer that was continued over to the uteroovarian pedicle, which was clamped, cauterized and divided. This was over to the round ligament down the broad ligament to the cardinal ligament, allowing for removal of the left tube and conservation of the left ovary. Anterior lower uterine segment peritoneum was then exposed and using a bipolar fenestrated grasper on the left, now and a monopolar shear on the right. The anterior lower uterine segment peritoneum was divided, a colpotomy incision was started at 12 o'clock position onto the colpotomy ring. The colpotomy ring was then exposed circumferentially until the entire ring was exposed, allowing for removal of the uterus through the vaginal cuff. This was done with some difficulty, the uterus was large and bulky, but it was to be intact. With the uterus out, the vaginal cuff was closed with a V-Loc barbed suture starting from the right angle of the vaginal cuff and continuing completely across taking care to ensure inclusion of the uterine vessel pedicles bilaterally. The bladder peritoneum was brought back down onto the cuff with the last two stitches. Hemostasis was complete. No abnormal pathology was remaining. At this point, the procedure was terminated. The operative instruments were removed under direct vision as were the ports. The abdomen was evacuated of the insufflating gas in the process of removing the ports. The patient was brought out of Trendelenburg. The skin incisions were stapled after closing the fascia at the supraumbilical incision with [id number] suture of 2-0 Vicryl. The patient was returned to the dorsal lithotomy position. Cystoscopy was performed using sterile water in the bladder with the cystoscope. The patient had been given an amp of indigo carmine and 20 mg of Lasix. Prompt spill of blue urine from both ureteral orifices was noted. The cystoscopy was terminated. The bladder was drained via Galicia catheter to dependent drainage. Sponge and needle counts were correct. Estimated blood loss was minimal. The patient was now uneventfully awakened from her general anesthesia and transferred to the recovery room in stable condition. Job ID: [id number] DocumentID: [id number] Dictated Date: 03/13/2020 17:20:36 Building Serviceman Date: 03/13/2020 22:04:25 Dictated By: KEVIN LIN MD
--- NOTE | 2020-03-14 05:55 | NUR ---
IV and KIM CATH removed at this time. Pt. up to bathroom with nurse assist. Pad and underwear put on. Unable to void at this time. Pt. tolerates well. Denies the need for pain meds at this time. Pt. wants to walk around the room for a while. Pt. is steady on her feet, but is told to call out if she needs nurse assistance.
[2020-03-14 06:00] VITALS: BP 112/68
[2020-03-14] MEDS: KETOROLAC 30 MG/ML VIAL IVP SCH (06:01)
[2020-03-14 08:30] VITALS: BP 106/69
--- NOTE | 2020-03-14 08:49 | Progress Note ---
Standard Progress Note Progress Notes/Assess & Plan Date Seen by a Provider: Mar 14, 2020 Time Seen by a Provider: 08:47 Progress/Assessment & Plan This patient is without complaint. She is ambulating, voiding, tolerating oral intake well has good pain control. Vital Signs Date Time Temp Pulse Resp B/P (MAP) Pulse Ox O2 Delivery O2 Flow Rate FiO2 03/14/20 08:03 Room Air 03/14/20 06:00 36.8 76 18 112/68 (83) 98 Room Air 03/14/20 02:05 36.6 76 20 127/75 (92) 97 Room Air 03/13/20 22:13 36.5 86 18 112/66 (81) 93 Room Air 03/13/20 21:15 93 Room Air 03/13/20 18:30 36.8 72 16 133/78 (96) 97 Room Air 03/13/20 18:20 Room Air 03/13/20 18:20 36.2 16 130/78 (95) 98 Room Air 03/13/20 18:15 Room Air 03/13/20 18:10 20 123/80 (94) 98 Room Air 03/13/20 18:00 Room Air 03/13/20 18:00 14 119/70 (86) 97 Room Air 03/13/20 17:50 16 126/81 (96) 99 OxyMask 3 03/13/20 17:45 OxyMask 6 03/13/20 17:40 24 116/84 (95) 100 OxyMask 6 03/13/20 17:30 OxyMask 8 03/13/20 17:30 36.2 16 127/75 (92) 97 OxyMask 8 I & O 03/14/20 07:00 Intake Total 3950 ml Output Total 350 ml Balance 3600 ml Vital signs are stable. Patient is afebrile. The abdomen is benign. The midline incision dressing is saturated with blood that dressing is removed and the incisions clean and intact with no active bleeding Extremities show no clubbing or cyanosis. There is no Homans sign. Assessment and plan postoperative day number 1 doing well. Plan is for us jodi adan home with follow-up in clinic Final Diagnosis Dysfunctional uterine bleeding chronic pelvic pain, endometriosis ,intrauterine mass KEVIN LIN MD Mar 14, 2020 08:49
[2020-03-14] MEDS ORDERED: DOCUSATE SODIUM 100 MG (COLACE) CAP PO SCH (09:00)
[2020-03-14] MEDS ORDERED: IBUPROFEN 800 MG (MOTRIN) TAB PO SCH (18:00)
--- NOTE | 2020-03-15 10:23 | Anesthesia-General Post-Op ---
General Significant Intra-Op Events Notes late entry from 03/14 Patient Condition Mental Status/LOC: Same as Preop Cardiovascular: Satisfactory Nausea/Vomiting: Absent Respiratory: Satisfactory Pain: Controlled Complications: Absent Post Op Complications Complications None Follow Up Care/Instructions Patient Instructions None needed. Anesthesia/Patient Condition Patient Condition Patient is doing well, no complaints, stable vital signs, no apparent adverse anesthesia problems. No complications reported per nursing. JESSICA SORIANO CRNA Mar 15, 2020 10:23
== END 2020-03-14 11:10 | disposition home or self-care (01) ==
LOC: SDC 11:41 → WS 17:20 → SDC 03-14 11:10
PROVIDERS: ATTEND Obstetrics & Gynecology
DX: N80.0 Endometriosis of uterus (principal); D25.1 Intramural leiomyoma of uterus; N72 Inflammatory disease of cervix uteri; N83.9 Noninflammatory disorder of ovary, fallopian tube and broad ligament, unspecified; N83.201 Unspecified ovarian cyst, right side; N73.6 Female pelvic peritoneal adhesions (postinfective); Z11.2 Encounter for screening for other bacterial diseases; E78.5 Hyperlipidemia, unspecified; K52.9 Noninfective gastroenteritis and colitis, unspecified; E66.9 Obesity, unspecified; Z68.32 Body mass index [BMI] 32.0-32.9, adult; Z79.3 Long term (current) use of hormonal contraceptives; Z87.891 Personal history of nicotine dependence; Z88.0 Allergy status to penicillin; Z88.1 Allergy status to other antibiotic agents
CPT/HCPCS: 36415; 84703; 85025; 86850; 86900; 86901; 87081; 88307; 94664

== ENCOUNTER 2020-07-02 16:23 | Emergency (ER) | payer OTHER ==
[~2020-07-02 16:23] MED LIST changes: +DCS100C PO; +IBUP-1780 PO; +OXYC1TAB87 PO
[2020-07-02 17:30] LABS: BILIRUBIN,URINE NEGATIVE (NEGATIVE); CLARITY,URINE CLEAR; COLOR,URINE YELLOW; GLUCOSE, URINE (UA) NEGATIVE (NEGATIVE); KETONES,URINE NEGATIVE (NEGATIVE); LEUKOCYTE ESTERASE ,URINE NEGATIVE (NEGATIVE); NITRITE,URINE NEGATIVE (NEGATIVE); PROTEIN,URINE NEGATIVE (NEGATIVE)
[2020-07-02 17:30] LABS: BASOPHILS % (AUTO) 0 % (0-10); EOSINOPHILS % (AUTO) 0 % (0-10); HEMATOCRIT 41 % (35-52); HEMOGLOBIN 13.7 g/dL (11.5-16.0); LYMPHOCYTES # (AUTO) 3.3 10^3/uL (1.0-4.0); LYMPHOCYTES % (AUTO) 20 % (12-44); MEAN CORPUSCULAR HEMOGLOBIN 32 pg (25-34); MEAN CORPUSCULAR HGB CONC 34 g/dL (32-36); MEAN CORPUSCULAR VOLUME 94 fL (80-99); MEAN PLATELET VOLUME 9.1 fL (9.0-12.2); MONOCYTES # (AUTO) 0.6 10^3/uL (0.0-1.0); MONOCYTES % (AUTO) 4 % (0-12); NEUTROPHILS # (AUTO) 12.5 10^3/uL (1.8-7.8); NEUTROPHILS % (AUTO) 75 % (42-75); PLATELET COUNT 434 10^3/uL (130-400); WHITE BLOOD COUNT 16.7 10^3/uL (4.3-11.0)
[2020-07-02 17:39] LABS: ALBUMIN 3.9 GM/DL (3.2-4.5); CHLORIDE 100 MMOL/L (98-107); POTASSIUM 4.3 MMOL/L (3.6-5.0); SODIUM 137 MMOL/L (135-145)
[2020-07-02 17:40] LABS: CALCIUM 9.4 MG/DL (8.5-10.1)
--- NOTE | 2020-07-02 17:40 | ED Respiratory ---
General Chief Complaint: Respiratory Problems Stated Complaint: SOA;COVID POSITIVE;LOSS OF TASTE/SMELL Nursing Triage Note: Pt ambulates to room #8 with c/o SOA et "tightness in the chest." Reports to have tested + for COVID-19 on 06/22/20. Pt reports deccrease SPO2 after extertion (92%). Pt reports when experiencing SOA, she begins to experience intermittent tightness in her chest accompanied by palpitations. Initial SPO2 96% via RA. Reports to be >72hr fever free. A&OX4. Source: patient Exam Limitations: no limitations History of Present Illness Date Seen by Provider: Jul 02, 2020 Time Seen by Provider: 16:27 Initial Comments This 40-year-old woman presents to the emergency room with complaints of shortness of breath. She has been ill with COVID-19 since June 20. She completed steroids, azithromycin, and several supplements but is still having difficulty breathing. She is not hypoxic but she does have crackles in the right lower lung on exam. Allergies and Home Medications Allergies Coded Allergies: levofloxacin (Unverified Allergy, Severe, HIVES, 01/10/17) Penicillins (Verified Allergy, Unknown, FROM CHILDHOOD, 01/10/17) Home Medications Docusate Sodium 100 Mg Capsule, 100 MG PO BID Prescribed by: KEVIN KEITH on 03/13/20 1543 Ibuprofen 800 Mg Tablet, 800 MG PO Q6HR Prescribed by: KEVIN KEITH on 03/13/20 1543 Oxycodone HCl/Acetaminophen 1 Each Tablet, 1 TAB PO Q4H PRN for PAIN-MODERATE (5-7) Prescribed by: KEVIN KEITH on 03/13/20 1543 [bcp] , 1 TAB PO DAILY, (Reported) Patient Home Medication List Home Medication List Reviewed: Yes Review of Systems Review of Systems Constitutional: no symptoms reported EENTM: no symptoms reported Respiratory: see HPI Cardiovascular: no symptoms reported Gastrointestinal: no symptoms reported Genitourinary: no symptoms reported : Yes Musculoskeletal: no symptoms reported Skin: no symptoms reported Psychiatric/Neurological: No Symptoms Reported Hematologic/Lymphatic: No Symptoms Reported Immunological/Allergic: no symptoms reported Past Nrgvhnt-Loianq-Rhxxzg Hx Patient Social History Alcohol Use: Rarely Uses Number of Drinks Today: 0 Recreational Drug Use: No Smoking Status: Never a Smoker Type Used: Cigarettes Former Smoker, Quit: Nov 09, 2008 2nd Hand Smoke Exposure: No Recent Foreign Travel: No Contact w/Someone Who Travel: No Recent Infectious Disease Expo: No Recent Hopitalizations: No Immunizations Up To Date Tetanus Booster (TDap): Unknown Seasonal Allergies Seasonal Allergies: Yes Past Medical History Surgeries: Yes (CYST REMOVAL, D&C x2, WISDOM TEETH) Appendectomy, Hysterectomy, Tonsillectomy Respiratory: No Cardiac: No Neurological: No Reproductive Disorders: Yes (HX PELVIC MASS, MISSED ) Female Reproductive Disorders: Menstrual Problems, Endometriosis, 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 0.0oz. 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 as tested, no motor/sensory deficits, alert, normal mood/affect, oriented x 3 Skin: normal color, warm/dry Progress/Results/Core Measures Suspected Sepsis Recent Fever Within 48 Hours: No Infection Criteria Present: Documented Infection New/Unexplained Altered Menta: No Sepsis Screen: No Definite Risk SIRS Temperature: Pulse: 82 Respiratory Rate: 20 Laboratory Tests 07/02/20 17:15: White Blood Count 16.7H Blood Pressure 151 /95 Mean: 113 Laboratory Tests 07/02/20 17:15: Creatinine 0.73, Platelet Count 434H, Total Bilirubin 0.3 Results/Orders Lab Results Laboratory Tests Test 07/02/20 16:55 07/02/20 17:15 Range/Units Urine Color YELLOW Urine Clarity CLEAR Urine pH 7.0 5-9 Urine Specific [place] <=1.005 1.016-1.022 Urine Protein NEGATIVE NEGATIVE Urine Glucose (UA) NEGATIVE NEGATIVE Urine Ketones NEGATIVE NEGATIVE Urine Nitrite NEGATIVE NEGATIVE Urine Bilirubin NEGATIVE NEGATIVE Urine Urobilinogen 0.2 < = 1.0 MG/DL Urine Leukocyte Esterase NEGATIVE NEGATIVE Urine RBC (Auto) NEGATIVE NEGATIVE Urine RBC NONE /HPF Urine WBC NONE /HPF Urine Squamous Epithelial Cells 0-2 /HPF Urine Crystals NONE /LPF Urine Bacteria NEGATIVE /HPF Urine Casts NONE /LPF Urine Mucus NEGATIVE /LPF Urine Culture Indicated NO White Blood Count 16.7 H 4.3-11.0 10^3/uL Red Blood Count 4.31 3.80-5.11 10^6/uL Hemoglobin 13.7 11.5-16.0 g/dL Hematocrit 41 35-52 % Mean Corpuscular Volume 94 80-99 fL Mean Corpuscular Hemoglobin 32 25-34 pg Mean Corpuscular Hemoglobin Concent 34 32-36 g/dL Red Cell Distribution Width 12.5 10.0-14.5 % Platelet Count 434 H 130-400 10^3/uL Mean Platelet Volume 9.1 9.0-12.2 fL Immature Granulocyte % (Auto) 1 % Neutrophils (%) (Auto) 75 42-75 % Lymphocytes (%) (Auto) 20 12-44 % Monocytes (%) (Auto) 4 0-12 % Eosinophils (%) (Auto) 0 0-10 % Basophils (%) (Auto) 0 0-10 % Neutrophils # (Auto) 12.5 H 1.8-7.8 10^3/uL Lymphocytes # (Auto) 3.3 1.0-4.0 10^3/uL Monocytes # (Auto) 0.6 0.0-1.0 10^3/uL Eosinophils # (Auto) 0.0 0.0-0.3 10^3/uL Basophils # (Auto) 0.0 0.0-0.1 10^3/uL Immature Granulocyte # (Auto) 0.2 H 0.0-0.1 10^3/uL Neutrophils % (Manual) 77 % Lymphocytes % (Manual) 21 % Monocytes % (Manual) 2 % Eosinophils % (Manual) 0 % Basophils % (Manual) 0 % Band Neutrophils 0 % Blood Morphology Comment NORMAL D-Dimer 0.47 0.00-0.49 UG/ML Sodium Level 137 135-145 MMOL/L Potassium Level 4.3 3.6-5.0 MMOL/L Chloride Level 100 98-107 MMOL/L Carbon Dioxide Level 22 21-32 MMOL/L Anion Gap 15 H 5-14 MMOL/L Blood Urea Nitrogen 24 H 7-18 MG/DL Creatinine 0.73 0.60-1.30 MG/DL Estimat Glomerular Filtration Rate > 60 BUN/Creatinine Ratio 33 Glucose Level 106 H 70-105 MG/DL Calcium Level 9.4 8.5-10.1 MG/DL Corrected Calcium 9.5 8.5-10.1 MG/DL Total Bilirubin 0.3 0.1-1.0 MG/DL Aspartate Amino Transf (AST/SGOT) 13 5-34 U/L Alanine Aminotransferase (ALT/SGPT) 14 0-55 U/L Alkaline Phosphatase 57 40-136 U/L C-Reactive Protein High Sensitivity 1.85 H 0.00-0.50 MG/DL Total Protein 7.5 6.4-8.2 GM/DL Albumin 3.9 3.2-4.5 GM/DL Vital Signs/I&O 07/02/20 16:50 Temp 36.7 Pulse 82 Resp 20 B/P (MAP) 151/95 (113) Pulse Ox 96 O2 Delivery Room Air Capillary Refill : Less Than 3 Seconds Blood Pressure Mean: 113 Progress Note : Progress Note There is no evidence of pulmonary embolism. Work-up was relatively unremarkable except for leukocytosis and crackles on the right lower lung ronquillo on exam. There is also scattered infiltrate which could simply be findings of Covid but could also be related to secondary pneumonia. Patient is being started on doxycycline to treat a possible secondary pneumonia. Diagnostic Imaging Diagonstic Imaging: Xray Plain Films/CT/US/NM/MRI: chest Comments Chest x-ray viewed by me and report reviewed. See report below: NAME: JOSHUA BUCKNER [facility] REC#: [id number] PT STATUS: REG ER : 1980 PHYSICIAN: SONIA RODRIGUEZ FOCUS PULLER ADMIT DATE: 07/02/20/ER Draft Date of Exam:07/02/20 CHEST 1 VIEW, AP/PA ONLY INDICATION: Cough, Covid positive x 10 days. EXAMINATION: Single view chest, 07/02/2020. FINDINGS: Heart is unremarkable. Pulmonary vasculature within normal limits. There are a few scattered patchy airspace opacities throughout the lungs, right greater than left. No effusion or pneumothorax. IMPRESSION: Scattered mild infiltrates. Dictated on workstation # [id number] Dict: 07/02/20 1740 Trans: 07/02/20 174 [facility] [id number] Interpreted by: DINO CHERY MD Departure Impression Primary Impression: COVID-19 Additional Impressions: Atypical pneumonia Dyspnea Qualified Codes: R06.00 - Dyspnea, unspecified Disposition: HOME, SELF-CARE Condition: Improved Departure-Patient Inst. Decision time for Depature: 18:04 Referrals: JANINA CARPIO MD (PCP/Family) Primary Care Physician Patient Instructions: Pneumonia, Adult (DC), Coronavirus Disease 2019 (COVID- 19) Overview Add. Discharge Instructions: Remain in quarantine through an entire 14 days from onset of symptoms. You may be released July 04 if your symptoms have improved. Complete your doxycycline antibiotic as prescribed. Stay well-hydrated. Contact your doctor or return to the emergency room if you have worsening symptoms. All discharge instructions reviewed with patient and/or family. Voiced understanding. Scripts Doxycycline Hyclate (Doxycycline Hyclate) 100 Mg Tablet 100 MG PO BID, #20 TAB 0 Refills Prov: SOREN BONILLA MD 07/02/20 Copy Copies To 1: JANINA CARPIO MD, JOSHUA T MD Jul 02, 2020 17:40
[2020-07-02 17:41] LABS: GLUCOSE 106 MG/DL (70-105); TOTAL PROTEIN 7.5 GM/DL (6.4-8.2)
[2020-07-02 17:42] LABS: CARBON DIOXIDE 22 MMOL/L (21-32)
[2020-07-02 17:43] LABS: BILIRUBIN,TOTAL 0.3 MG/DL (0.1-1.0)
--- NOTE | 2020-07-02 17:43 | Diagnostic Imaging Report ---
INDICATION: Cough, Covid positive x 10 days. EXAMINATION: Single view chest, 07/02/2020. FINDINGS: Heart is unremarkable. Pulmonary vasculature within normal limits. There are a few scattered patchy airspace opacities throughout the lungs, right greater than left. No effusion or pneumothorax. IMPRESSION: Scattered mild infiltrates. Dictated by: Dictated on workstation # [id number]
[2020-07-02 17:44] LABS: ALKALINE PHOSPHATASE 57 U/L (40-136)
[2020-07-02 17:45] LABS: BACTERIA,URINE NEGATIVE /HPF; SQUAMOUS EPITHELIAL CELL,UR 0-2 /HPF
[2020-07-02 17:45] LABS: CREATININE SERUM 0.73 MG/DL (0.60-1.30); GFR ESTIMATED > 60
[2020-07-02 17:46] LABS: BUN/CREATININE RATIO 33
[2020-07-02 17:48] LABS: ALANINE AMINOTRANSFERASE 14 U/L (0-55)
[2020-07-02 17:50] LABS: BAND NEUTROPHILS 0 %; BASOPHILS % (MANUAL) 0 %; EOSINOPHILS % (MANUAL) 0 %; LYMPHOCYTES % (MANUAL) 21 %; MONOCYTES % (MANUAL) 2 %; NEUTROPHILS % (MANUAL) 77 %; RBC MORPH NORMAL
[2020-07-02] MEDS ORDERED: DOXY100T2 PO (18:06)
[2020-07-02 18:20] VITALS: BP 119/85
== END 2020-07-02 18:20 | disposition home or self-care (01) ==
LOC: EDUNIT# 16:23 → ER 16:24
DX: U07.1 COVID-19 (principal); J18.9 Pneumonia, unspecified organism; R06.00 Dyspnea, unspecified; Z87.891 Personal history of nicotine dependence; Z88.0 Allergy status to penicillin; Z88.1 Allergy status to other antibiotic agents
CPT/HCPCS: 36415; 71045; 80053; 81000; 85007; 85027; 85379; 86141

== ENCOUNTER → 2021-10-15 | Outpatient (CLI) | payer OTHER ==
[~2021-10-15] MED LIST changes: -DCS100C PO; +DOCU-239 PO; +DOXY100T2 PO
== END ==
LOC: CARD 13:36
PROVIDERS: ATTEND Internal Medicine
DX: I47.9 Paroxysmal tachycardia, unspecified (principal)
CPT/HCPCS: 93005

== ENCOUNTER 2021-10-19 15:30 | Outpatient (RCR) | payer OTHER | END 2021-11-11 | LOC: CARD 15:30 | PROVIDERS: ATTEND Internal Medicine | DX: I47.9 Paroxysmal tachycardia, unspecified (principal) ==

== ENCOUNTER → 2021-11-25 | Outpatient (CLI) | payer OTHER | LOC: CARD 13:30 | PROVIDERS: ATTEND Nurse Practitioner Family | DX: I49.1 Atrial premature depolarization (principal); I49.3 Ventricular premature depolarization; E78.01 Familial hypercholesterolemia; Z82.49 Family history of ischemic heart disease and other diseases of the circulatory system | CPT/HCPCS: 93306 ==

== ENCOUNTER → 2022-06-16 | Outpatient (CLI) | payer OTHER ==
--- NOTE | 2022-06-16 12:53 | Diagnostic Imaging Report ---
INDICATION: Routine screening. Comparison is made with prior mammogram 02/25/2020 and 02/21/2018. 2-D and 3-D bilateral screening mammography was performed with CAD. CAD is utilized. The current study was also evaluated with a Computer Aided Detection (CAD) system. Scattered fibroglandular densities are identified bilaterally. The parenchymal pattern appears to be stable. No mass or malignant-appearing microcalcifications are seen. There are occasional benign calcifications noted. Axillae are unremarkable. IMPRESSION: BI-RADS Category 2 No mammographic features suspicious for malignancy are identified. ACR BI-RADS Category 2: Benign findings. Result letter will be mailed to the patient. Note: At least 10% of breast cancer is not imaged by mammography. Dictated by: Dictated on workstation # [id number]
== END ==
LOC: RAD 10:04
PROVIDERS: ATTEND Obstetrics & Gynecology
DX: Z12.31 Encounter for screening mammogram for malignant neoplasm of breast (principal)
CPT/HCPCS: 77063; 77067

== ENCOUNTER → 2023-07-10 | Outpatient (CLI) | payer OTHER ==
--- NOTE | 2023-07-10 16:04 | Diagnostic Imaging Report ---
INDICATION: Routine screening. COMPARISON: 06/16/2022 and 02/25/2020. TECHNIQUE: 2D and 3D bilateral screening mammography was performed with CAD. FINDINGS: Scattered fibroglandular densities are identified bilaterally. The parenchymal pattern is stable. Benign calcifications on the right are noted. No mass or malignant-appearing microcalcifications are identified. The axillae are unremarkable. IMPRESSION: No mammographic features suspicious for malignancy are identified. ACR BI-RADS Category 1: Negative. Result letter will be mailed to the patient. Note: At least 10% of breast cancer is not imaged by mammography. Dictated by: Dictated on workstation # [id number]
== END ==
LOC: RAD 14:40
PROVIDERS: ATTEND Internal Medicine
DX: Z12.31 Encounter for screening mammogram for malignant neoplasm of breast (principal)
CPT/HCPCS: 77063; 77067